=== PATIENT | male | born 1955 | race Native Hawaiian/Other Pacific Islander ===

== ENCOUNTER 2017-04-22 06:47 | Day surgery (SDC) | payer OTHER ==
[2017-04-22] MEDS ORDERED: Propofol 10 mg/ml Inj (20 ML) ONE (09:55)
[2017-04-22] MEDS ORDERED: Simethicone 40 mg/0.6 ml Liquid (30 ml) ONE (10:01)
[2017-04-22 10:49] VITALS: TEMP 98.1
[2017-04-22 11:48] VITALS: O2SAT 100
[2017-04-22 11:50] VITALS: BP 100/70; PULSE 67; RESP 12
== END 2017-04-22 11:30 | disposition home or self-care (01) ==
LOC: C.ENDO 06:47
PROVIDERS: ATTEND Internal Medicine Gastroenterology
DX: D12.0 Benign neoplasm of cecum (principal); K62.1 Rectal polyp; D12.4 Benign neoplasm of descending colon
CPT/HCPCS: 45388; 88305; J2704